=== PATIENT | female | born 1950 | race Caucasian/White ===

== ENCOUNTER 2016-09-05 06:40 | Day surgery (SDC) | payer MEDICARE, OTHER ==
[2016-09-02 13:02] LABS: HEMATOCRIT 32.1 % (36.0-48.0); HEMOGLOBIN 10.7 g/dL (12.0-16.0)
[2016-09-02 13:14] LABS: CALCIUM, SERUM 8.7 MG/DL (8.5-10.4); CHLORIDE, SERUM 110 MMOL/L (96-112); GFR AFRICAN AMERICAN 12 ML/MIN (>=60); GFR NON AFRICAN AMERICAN 11 ML/MIN (>=60); GLUCOSE, SERUM 111 MG/DL (60-99); POTASSIUM, SERUM 3.6 MMOL/L (3.5-5.3); SODIUM, SERUM 142 MMOL/L (135-148)
[2016-09-02 13:15] LABS: BUN (BLOOD UREA NITROGEN) 39 MG/DL (6-23); CO2 (CARBON DIOXIDE) 24 MMOL/L (24-34); CREATININE 4.08 MG/DL (0.55-1.02)
--- NOTE | ~2016-09-05 | OP ---
Record Of Operation [facility] [address] [place]. 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 PREPROCEDURE DIAGNOSIS: Chronic kidney disease. POSTPROCEDURE DIAGNOSIS: Chronic kidney disease. PROCEDURE PERFORMED: Creation of right radiocephalic arteriovenous fistula. ANESTHETIC: MAC, local en bloc. SPECIMENS: None. ESTIMATED BLOOD LOSS: Minimal. COMPLICATIONS: None. INDICATIONS: Kirt Ontiveros is 66 years old. She was seen in the office recently for placement of dialysis access. She was offered intervention. Risks, benefits, and alternatives were discussed. She understood and wished to proceed. OPERATIVE COURSE: The patient was brought to the operating room, placed in supine position on the operating room table. The patient had MAC anesthetic without complications. She also had a local block of her right arm and preop area without complications. Her right arm was prepped and draped in sterile fashion. A time-out was performed after identifying the correct patient, procedure, and site. We began by using ultrasound to identify the venous anatomy of the right upper extremity. There was a nice cephalic vein that terminated in its usual branches at the wrist level. We also identified the radial artery which was of good size. We used local anesthetic to anesthetize between these two structures. I made a longitudinal incision. We deepened the incision through the subcutaneous tissue and found the cephalic vein. It was dissected along its course and ligated distally. The vein was dissected free from its surrounding branches with silk ligatures. We dilated the vein with saline and it dilated nicely and appeared to be of good quality. We then dissected out the radial artery proximally and distally. We gave IV heparin and allowed adequate time for circulation. We clamped the artery proximally and distally and created an arteriotomy with an 11-blade scalpel. We then anastomosed the spatulated vein end to the artery using 6-0 Prolene suture in a running fashion. Prior to completion, all vessels were flushed and flushed with heparinized saline. We completed anastomosis and released the clamps establishing flow through the circuit. The distal radial artery was still palpable. There was a nice flow in the fistula. The wound was irrigated with saline. The deep layers were closed with interrupted Vicryl suture. The skin was closed with 4-0 subcuticular Monocryl and Dermabond. The patient tolerated the procedure well. She was awakened and transferred Record Of [address] [address] NAME: KIRT ONTIVEROS : 46 STATUS : [facility] PAT#: [id number] AGE: 66 ADM/REG DATE : 09/05/16 MR#: [id number] REPORT SERV DATE: 09/06/16 DICTATED BY: CHRISTO CLAYTON DATE: 09/05/16 REPORT STATUS : Draft TRANSCRIBED BY: SARIAH DATE: 09/05/16 to recovery in stable condition. RIK/SARIAH Christo Clayton MD / [id number] CC: Christo Clayton MD
[~2016-09-05 06:40] MED LIST: APRES50 PO; ASAB PO; HYDROCHLOROT12.5 MG PO; L20 PO; NORV10 PO; PT DENIES HOME MEDS; ZESTORETIC PO; ZOCOR40 PO
[2016-09-05 07:32] LABS: BUN (BLOOD UREA NITROGEN) 37 MG/DL (6-23); CALCIUM, SERUM 8.7 MG/DL (8.5-10.4); CHLORIDE, SERUM 112 MMOL/L (96-112); CO2 (CARBON DIOXIDE) 26 MMOL/L (24-34); CREATININE 4.08 MG/DL (0.55-1.02); GFR AFRICAN AMERICAN 12 ML/MIN (>=60); GFR NON AFRICAN AMERICAN 11 ML/MIN (>=60); GLUCOSE, SERUM 101 MG/DL (60-99); POTASSIUM, SERUM 3.7 MMOL/L (3.5-5.3); SODIUM, SERUM 145 MMOL/L (135-148)
[2016-10-26] MEDS ORDERED: APRES50 PO (20:24)
[2016-10-26] MEDS ORDERED: VITAMIN D31000 UNIT PO (20:24)
[2016-10-26] MEDS ORDERED: L20 PO (20:24)
[2016-10-26] MEDS ORDERED: ASAB PO (20:24)
[2016-10-26] MEDS ORDERED: NORV10 PO (20:24)
[2016-11-01] MEDS ORDERED: COREG6 PO (16:05)
[2016-11-07] MEDS ORDERED: NORV10 PO (12:11)
[2016-11-07] MEDS ORDERED: HALF81 PO (12:11)
[2016-11-07] MEDS ORDERED: COREG6 PO (12:13)
[2016-11-07] MEDS ORDERED: VITAMIN D31000 UNIT PO (12:18)
[2016-11-07] MEDS ORDERED: APRES50 PO (12:19)
[2016-11-07] MEDS ORDERED: L20 PO (12:22)
[2016-11-09] MEDS ORDERED: NORV5 PO (16:10)
== END 2016-09-05 12:00 | disposition home or self-care (01) ==
LOC: SDC 06:40
PROVIDERS: Student in an Organized Health Care Education/Training Program
PROC: 031B0JF Bypass Right Radial Artery to Lower Arm Vein with Synthetic Substitute, Open Approach (ICD-10-PCS; principal; 2016-09-05 08:45)
DX: I12.0 Hypertensive chronic kidney disease with stage 5 chronic kidney disease or end stage renal disease (principal); N18.6 End stage renal disease; R01.1 Cardiac murmur, unspecified; Z86.73 Personal history of transient ischemic attack (TIA), and cerebral infarction without residual deficits; F17.210 Nicotine dependence, cigarettes, uncomplicated; Z88.1 Allergy status to other antibiotic agents; Z98.890 Other specified postprocedural states; Z98.51 Tubal ligation status
CPT/HCPCS: 80048; 85014; 85018; 93005; J0690; J2250; J2795; J3010